=== PATIENT | male | born 1970 | race African-American/Black ===

== ENCOUNTER 2017-11-02 08:49 | Emergency (ER) | payer OTHER ==
[~2017-11-02] VITALS: Ht 177.8 cm; Wt 81.7 kg
--- NOTE | ~2017-11-02 | EKG ---
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: [facility] : 1970 Requested By: Stefanie Lopez Order Number: [id number] MD: Raphael Iniguez Measurements Intervals [place] Rate: 57 P: 72 MI: 149 QRS: -3 QRSD: 84 T: 24 QT: 430 QTc: 419 Interpretive Statements Sinus bradycardia Otherwise normal tracing Compared to ECG 02/07/2015 03:39:55 No significant change was found Electronically Signed On 11-02-2017 12:47:53 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
[~2017-11-02 08:49] MED LIST: AUGMENTIN 875-1 EACH PO; AZITHROMYCIN 2250 MG PO; GUAIATUSSIN AC L5 ML PO; IBUPROFEN 600600 M1 PO; IBUPROFEN 800800 MG PO; NAPROSYN500 MG PO; NOHOMEMEDICATIONS; PROMETHAZINE-C120 ML PO; PROVENTIL HFA6.7 G1 INH; ULTRAM 50MG TAB50 MG PO; ZPAK PO
[2017-11-02 09:21] LABS: HEMATOCRIT 44.4 % (42.0-52.0); MANUAL DIFF YES; MCH 28.2 pg (26.0-34.0); MCHC 33.9 g/dL (28.0-37.0); MCV 83.3 fL (80.0-100.0); PLATELET COUNT 188 thou/uL (150-400); RBC 5.34 mil/uL (4.50-6.00); WBC 4.1 thou/uL (4.0-11.0)
[2017-11-02 09:28] LABS: ANION GAP 4 mmol/L (7-16); BUN 9 mg/dL (7-18); CALCIUM 8.7 mg/dL (8.5-10.1); CHLORIDE 106 mmol/L (98-107); CO2 31 mmol/L (21-32); GLUCOSE 95 mg/dL (74-106); POTASSIUM 3.5 mmol/L (3.5-5.1); SODIUM 141 mmol/L (136-145)
[2017-11-02 09:36] LABS: ALBUMIN 3.7 g/dL (3.4-5.0); ALKALINE PHOSPHATASE 87 U/L (46-116); SGOT 23 U/L (15-37); SGPT 33 U/L (30-65); TOTAL BILIRUBIN 0.7 mg/dL (<0.1-1.0); TOTAL PROTEIN 7.2 g/dL (6.4-8.2); TROPONIN-I < 0.04 ng/mL (<0.06)
[2017-11-02 09:51] LABS: ABSOLUTE NEUTROPHILS 1.6 thou/uL (1.4-8.2); PLATELET ESTIMATE NORMAL; TOTAL CELL COUNT 100
[2017-11-02] MEDS ORDERED: PREDNISONE 20 M20 MG PO (10:17)
[2017-11-02] MEDS ORDERED: PROMETHAZINE/C118 ML PO (10:17)
[2017-11-02 10:55] VITALS: BP 121/67
== END 2017-11-02 11:03 | disposition home or self-care (01) ==
LOC: ER 08:49
PROVIDERS: Physician Assistant
DX: J20.8 Acute bronchitis due to other specified organisms (principal); J45.909 Unspecified asthma, uncomplicated; F17.210 Nicotine dependence, cigarettes, uncomplicated